=== PATIENT | female | born 1955 | race Two or more races ===

== ENCOUNTER 2018-02-14 16:04 | Observation (INO) | payer OTHER ==
[~2018-02-14] VITALS: Ht 154.9 cm; Wt 71.8 kg
[2018-02-14] MEDS ORDERED: METOCLOPRAMIDE 5 MG/ML, 2ML ONE (17:15)
[2018-02-14] MEDS ORDERED: METOCLOPRAMIDE 5 MG/ML, 2ML IVPush ONE (17:30)
[2018-02-14] MEDS ORDERED: SODIUM CHLORIDE FLUSH 10ML SYR IVF ONE ×2 (17:30→18:30)
[2018-02-14 17:36] LABS: BASOPHILS # (AUTO) 0.01 x10^3/uL (0-0.1); BASOPHILS % (AUTO) 0 % (0-1); EOSINOPHILS % (AUTO) 0 % (1-7); LYMPHOCYTES # (AUTO) 0.79 x10^3/uL (1-3.4); LYMPHOCYTES % (AUTO) 13 % (22-44); MD NO; MEAN CORPUSCULAR HEMOGLOBIN 31.3 pg (27.0-34.8); MEAN CORPUSCULAR HGB CONC 33.6 g/dL (32.4-35.8); MEAN PLATELET VOLUME 7.9 fL (7.4-10.4); MONOCYTES # (AUTO) 0.11 x10^3/uL (0.2-0.8); MONOCYTES % (AUTO) 2 % (2-9); NEUTROPHILS # (AUTO) 5.14 x10^3/uL (1.8-6.8); NEUTROPHILS % (AUTO) 85 % (42-75); PLATELET COUNT 192 x10^3/uL (130-400); RED BLOOD COUNT 4.31 x10^6/uL (3.82-5.3); RED CELL DISTRIBUTION WIDTH 14.2 % (9.6-15.2)
[2018-02-14 17:43] LABS: ALBUMIN 3.5 g/dL (3.4-5.0); ANION GAP 4 mmol/L (5-15); CALCIUM 8.6 mg/dL (8.5-10.1); CHLORIDE 103 mmol/L (98-107)
[2018-02-14 17:49] LABS: CREATININE 0.56 mg/dL (0.55-1.02)
[2018-02-14 18:17] LABS: HCT (SEDRATE) 40.1 % (34.6-47.8)
[2018-02-14] MEDS ORDERED: ASPIRIN 81 MG TABLET CHEW PO ONE (18:30)
[2018-02-14] MEDS ORDERED: NITROGLYCERIN OINT 2%, 1GM TP ONE ×2 (18:30→18:49)
[2018-02-14] MEDS ORDERED: ASPIRIN 81 MG TABLET CHEW ONE (18:49)
[2018-02-14] MEDS ORDERED: LIDODERM 5% PATCH TD PRN (19:30)
[2018-02-14] MEDS ORDERED: ENOXAPARIN 40 MG/0.4 ML SQ SCH (19:30)
[2018-02-14] MEDS ORDERED: hydrALAzine 20 MG/ML, 1ML IVPush PRN (19:30)
[2018-02-14] MEDS ORDERED: DIPHENHYDRAMINE 25 MG CAPSULE PO PRN (19:30)
[2018-02-14] MEDS ORDERED: MAALOX/HYOSCYAMINE/LIDOCAINE 45 ML BTL PO ONE (19:30)
[2018-02-14] MEDS ORDERED: DOCUSATE 100 MG CAPSULE PO PRN (19:30)
[2018-02-14] MEDS: ACETAMINOPHEN 325 MG TABLET PO PRN (20:59)
[2018-02-14] MEDS: ONDANSETRON 2MG/ML, 2ML IVPush PRN (22:54)
[2018-02-14] MEDS ORDERED: LOSA25TA25 PO (23:13)
[2018-02-14 23:22] VITALS: BP 124/70
[2018-02-14 23:42] LABS: TROPONIN I 0.065 ng/mL (0.000-0.045)
[2018-02-15 01:37] VITALS: BP 116/64
[2018-02-15 06:15] LABS: TROPONIN I 0.061 ng/mL (0.000-0.045)
[2018-02-15 07:15] VITALS: BP 105/60
[2018-02-15] MEDS ORDERED: REGADENOSON 0.4 MG/5 ML SYRINGE ONE (08:38)
[2018-02-15] MEDS: ONDANSETRON 2MG/ML, 2ML IVPush PRN (12:09)
[2018-02-15] MEDS: ACETAMINOPHEN 325 MG TABLET PO PRN (12:09)
[2018-02-15 12:28] VITALS: BP 128/71
[2018-02-15] MEDS ORDERED: AMLO2.5T2 PO (15:03)
[2018-02-15] MEDS ORDERED: ONDA4TAB7 PO (15:03)
[2018-02-15] MEDS ORDERED: BUTALB/APAP/CAFFEINE 50MG/325MG/40MG ONE (15:21)
[2018-02-15] MEDS ORDERED: BUTALB/APAP/CAFFEINE 50MG/325MG/40MG PO ONE (15:30)
== END 2018-02-15 16:35 | disposition home or self-care (01) ==
LOC: ED 16:57 → INTOOBSV 18:36 → UNDOADMOB 18:36 → EDIP 18:36 → 5SO 19:34 → EDIP 19:56 → 5SO 19:56 → DCLOUNGE 02-15 16:15
PROVIDERS: ADMIT Internal Medicine; ATTEND Internal Medicine
DX: R07.89 Other chest pain (principal); R11.2 Nausea with vomiting, unspecified; R51 Headache; I10 Essential (primary) hypertension
CPT/HCPCS: 36415; 70450; 71045; 78452; 80048; 82040; 84484; 85025; 85651; 93005; 93017; 93306; 96372; 96374; 96375; 96376; 99291; A9502; C9898; G0378; J1650; J2405; J2765; J2785

== ENCOUNTER 2019-01-10 20:33 | Emergency (ER) | payer OTHER ==
[~2019-01-10] VITALS: Ht 160 cm; Wt 80.8 kg
[~2019-01-10 20:33] MED LIST: AMLO2.5T2 PO; LOSA25TA25 PO; ONDA4TAB7 PO
[2019-01-10 21:28] LABS: CULTURE INDICATED? YES; MICROSCOPIC INDICATED
[2019-01-10 21:49] LABS: BASOPHILS # (AUTO) 0.04 x10^3/uL (0-0.1); BASOPHILS % (AUTO) 1 % (0-1); EOSINOPHILS # (AUTO) 0.09 x10^3/uL (0-0.4); EOSINOPHILS % (AUTO) 2 % (1-7); LYMPHOCYTES # (AUTO) 2.05 x10^3/uL (1-3.4); LYMPHOCYTES % (AUTO) 51 % (22-44); MD NO; MEAN CORPUSCULAR HEMOGLOBIN 30.6 pg (27.0-34.8); MEAN CORPUSCULAR HGB CONC 32.7 g/dL (32.4-35.8); MEAN CORPUSCULAR VOLUME 93.6 fL (80-100); MEAN PLATELET VOLUME 8.2 fL (7.4-10.4); MONOCYTES # (AUTO) 0.41 x10^3/uL (0.2-0.8); MONOCYTES % (AUTO) 10 % (2-9); NEUTROPHILS # (AUTO) 1.42 x10^3/uL (1.8-6.8); NEUTROPHILS % (AUTO) 35 % (42-75); PLATELET COUNT 239 x10^3/uL (130-400); RED BLOOD COUNT 3.75 x10^6/uL (3.82-5.3); RED CELL DISTRIBUTION WIDTH 14.8 % (9.6-15.2)
[2019-01-10 21:59] LABS: ALBUMIN 2.6 g/dL (3.4-5.0); ANION GAP 4 mmol/L (5-15); CALCIUM 8.2 mg/dL (8.5-10.1); CHLORIDE 108 mmol/L (98-107)
[2019-01-10 22:03] LABS: ALANINE AMINOTRANSFERASE 14 U/L (12-78); ALKALINE PHOSPHATASE 65 U/L (45-117); BILIRUBIN,TOTAL 0.4 mg/dL (0.2-1.0); CREATININE 0.58 mg/dL (0.55-1.02); TOTAL PROTEIN 8.4 g/dL (6.4-8.2)
--- NOTE | 2019-01-10 22:09 | NUR ---
PT TO ROOM FROM TRIAGE WITH C/O BLOOD IN URINE AND LOW BACK PAIN X 2 DAYS URINE AND BLOOD SENT TO LAB
[2019-01-10 22:39] VITALS: BP 159/95
== END 2019-01-10 23:35 | disposition home or self-care (01) ==
LOC: ED 23:29
DX: R10.12 Left upper quadrant pain (principal); R10.31 Right lower quadrant pain; R10.32 Left lower quadrant pain; M54.6 Pain in thoracic spine; M54.5 Low back pain; R31.9 Hematuria, unspecified; I10 Essential (primary) hypertension
CPT/HCPCS: 36415; 80053; 81001; 83690; 85025; 87086; 99283

== ENCOUNTER 2020-04-02 08:28 | Emergency (ER) | payer OTHER ==
[~2020-04-02] VITALS: Ht 137.2 cm; Wt 82.1 kg
--- NOTE | 2020-04-02 09:02 | NUR ---
First encounter with pt. Pt standing doubled over the bed. Pt then requests to go to the bathroom. Pt given UA cup and ambulatory to bathroom with steady gait.
[2020-04-02] MEDS ORDERED: SODIUM CHLORIDE 0.9% 1,000ML IVBOLUS ONE (09:30)
[2020-04-02] MEDS ORDERED: KETOROLAC 30 MG/1 ML IVPush ONE (09:30)
[2020-04-02] MEDS ORDERED: SODIUM CHLORIDE FLUSH 10ML SYR IVF ONE (09:30)
[2020-04-02 09:41] LABS: MICROSCOPIC NOT IND
[2020-04-02] MEDS ORDERED: KETOROLAC 30 MG/1 ML ONE (09:49)
--- NOTE | 2020-04-02 09:57 | NUR ---
This pt has multiple complaints including right flank pain that travels all the way up her back and "leg and feet cramps" when she bends over starting 3 days ago. Pt also complains of a frontal TAY starting today. Pt connected to all monitors and call light in reach. Granddaughter at bedside, serving as tube buffer. All needs met at this time.
[2020-04-02 10:13] LABS: BASOPHILS % (AUTO) 1 % (0-1); EOSINOPHILS % (AUTO) 2 % (1-7); LYMPHOCYTES % (AUTO) 39 % (22-44); MEAN CORPUSCULAR HEMOGLOBIN 30.9 pg (27.0-34.8); MEAN CORPUSCULAR HGB CONC 33.4 g/dL (32.4-35.8); MEAN PLATELET VOLUME 8.4 fL (7.4-10.4); MONOCYTES % (AUTO) 7 % (2-9); NEUTROPHILS % (AUTO) 52 % (42-75); PLATELET COUNT 205 x10^3/uL (130-400); RED BLOOD COUNT 4.14 x10^6/uL (3.82-5.3); RED CELL DISTRIBUTION WIDTH 14.3 % (9.6-15.2)
[2020-04-02 10:23] LABS: MD NO
[2020-04-02 10:25] LABS: CHLORIDE 109 mmol/L (98-107)
[2020-04-02 10:26] LABS: ALANINE AMINOTRANSFERASE 20 U/L (12-78); ALBUMIN 3.1 g/dL (3.4-5.0); ANION GAP 2 mmol/L (5-15); CALCIUM 8.3 mg/dL (8.5-10.1); CREATININE 0.57 mg/dL (0.55-1.02)
[2020-04-02 10:28] LABS: ALKALINE PHOSPHATASE 79 U/L (45-117); BILIRUBIN,TOTAL 0.7 mg/dL (0.2-1.0); TOTAL PROTEIN 9.2 g/dL (6.4-8.2)
[2020-04-02 11:41] VITALS: BP 140/78
== END 2020-04-02 11:55 | disposition home or self-care (01) ==
LOC: ED 08:55
DX: M54.5 Low back pain (principal); Z20.822 Contact with and (suspected) exposure to COVID-19; R10.9 Unspecified abdominal pain; R51.9 Headache, unspecified; I10 Essential (primary) hypertension
CPT/HCPCS: 36415; 71045; 80053; 81003; 85025; 87040; 93005; 96361; 96374; 99285; J1885; J7030; U0003